=== PATIENT | female | born 1985 | race Caucasian/White ===

== ENCOUNTER 2018-10-16 12:31 | Emergency (ER) | payer OTHER ==
[2018-10-16] MEDS ORDERED: SUBLIMAZE IV ONE (12:47)
[2018-10-16] MEDS ORDERED: ZOFRAN IV ONE (12:47)
[2018-10-16] MEDS ORDERED: KETALAR IV ONE (12:47)
[2018-10-16] MEDS ORDERED: DIPRIVAN 10 MG/ML IV ONE (12:47)
--- NOTE | 2018-10-16 12:49 | Emergency Department Report ---
ED General Adult HPI - General Chief complaint: Shoulder Injury Stated complaint: right shoulder dislocated Time Seen by Provider: 10/16/18 12:40 Source: family, site interpreter, RN notes reviewed Mode of arrival: Ambulatory Limitations: Language Barrier, Physical Limitation - History of Present Illness Initial comments: This is a 33-year-old female. The patient is not known to this provider previously. The patient is right-hand dominant. Patient is [place]-speaking only. Patient reports having lived in [facility] for 3 years. transit manager: Tammy Thomas The patient reportedly has a history of seizure disorder, and reportedly takes a antiseizure medication purchased in [place], fenidantoin, 200 mg twice daily. The patient endorses compliance with her medications. She had a seizure yesterday. She apparently hit her right shoulder and dislocated it. Prior to the seizure, the patient indicates no complaints. After the seizure, the patient complains of sharp right-sided shoulder pain. The pain does not radiate anywhere. It increases with palpation. It decreases with rest. There is currently no headache, neck pain, chest pain, abdominal pain, shortness of breath or urinary symptoms. Her last seizure was 2 years ago. -: Sudden Location: right, upper extremity Radiation: non-radiation Consistency: constant Improves with: rest Worsens with: movement - Related Data Previous Rx's Medication Instructions Recorded Last Taken Type Acetaminophen [Non-Aspirin Extra 500 mg PO Q6HR PRN #30 tablet 10/16/18 Unknown Rx Strength] Ibuprofen [Motrin] 600 mg PO Q8H PRN #30 tablet 10/16/18 Unknown Rx levETIRAcetam [Keppra TAB] 500 mg PO BID #60 tablet 10/16/18 Unknown Rx Allergies Allergy/AdvReac Type Severity Reaction Status Date / Time No Known Allergies Allergy Unverified 10/16/18 12:36 ED Review of Systems ROS: Stated complaint: LEFT SHOULDER DISLOCATED Other details as noted in HPI Constitutional: denies: fever Eyes: denies: eye discharge ENT: denies: epistaxis Respiratory: denies: cough Cardiovascular: denies: chest pain Genitourinary: denies: dysuria Musculoskeletal: arthralgia, myalgia Skin: denies: lesions Neurological: denies: headache Psychiatric: anxiety ED Past Medical Hx - Past Medical History Previous Medical History?: No - Surgical History Past Surgical History?: No - Medications Home Medications: Home Medications Medication Instructions Recorded Confirmed Last Taken Type Acetaminophen [Non-Aspirin Extra 500 mg PO Q6HR PRN #30 tablet 10/16/18 Unknown Rx Strength] Ibuprofen [Motrin] 600 mg PO Q8H PRN #30 tablet 10/16/18 Unknown Rx levETIRAcetam [Keppra TAB] 500 mg PO BID #60 tablet 10/16/18 Unknown Rx ED Physical Exam - General Limitations: Language Barrier, Physical Limitation General appearance: alert, anxious - Head Head exam: Present: atraumatic, normocephalic - Eye Eye exam: Present: normal appearance, PERRL, EOMI. Absent: nystagmus - ENT ENT exam: Present: normal exam, normal orophraynx, mucous membranes moist, normal external ear exam - Neck Neck exam: Present: normal inspection, full ROM. Absent: tenderness, meningismu s - Respiratory Respiratory exam: Present: normal lung sounds bilaterally. Absent: respiratory distress - Cardiovascular Cardiovascular Exam: Present: regular rate, normal rhythm, normal heart sounds. Absent: bradycardia, tachycardia, irregular rhythm, systolic murmur, diastolic murmur, rubs, gallop - GI/Abdominal GI/Abdominal exam: Present: soft. Absent: distended, tenderness, guarding, rebound, rigid, pulsatile mass - Extremities Exam Extremities exam: Present: full ROM (full range of motion noted in the right hand and wrist. Finger intrinsic muscles appear to be intact.), tenderness, other (2+ pulses noted in the bilateral upper extremities. Full range of motion bilateral lower extremities. Full range of motion in the left upper extremity. Sensation is intact to the bilateral deltoid, median, radial, ulnar distribution on the upper extremities.). Absent: normal inspection (there is a palpable shoulder deformity on the right shoulder.), calf tenderness - Back Exam Back exam: Present: normal inspection, full ROM. Absent: tenderness, CVA tenderness (R), CVA tenderness (L), paraspinal tenderness, vertebral tenderness - Neurological Exam Neurological exam: Present: alert, normal gait, other (Extraocular movements intact. Tongue midline. No facial droop. Facial sensation intact to light touch in the V1, V2, V3 distribution bilaterally. 5 and 5 strength in 4 extremities.. Sensation is intact to light touch in 4 extremities.) - Psychiatric Psychiatric exam: Present: anxious - Skin Skin exam: Present: warm, dry, intact, normal color. Absent: rash ED Course Vital Signs 10/16/18 10/16/18 10/16/18 13:01 13:30 13:38 Temperature Temperature [ 99.0 F Pre-Procedure] Pulse Rate 70 Pulse Rate [ Intra-Procedure ] Pulse Rate [ Post-Procedure] Pulse Rate [Pre 78 -Procedure] Respiratory 20 Rate Respiratory Rate [Intra- Procedure] Respiratory Rate [Post- Procedure] Respiratory 16 Rate [Pre- Procedure] Blood Pressure 136/82 Blood Pressure [Intra- Procedure] Blood Pressure [Post-Procedure ] Blood Pressure 132/65 [Pre-Procedure] O2 Sat by Pulse 97 99 Oximetry O2 Sat by Pulse Oximetry [ Intra-Procedure ] O2 Sat by Pulse Oximetry [Post -Procedure] O2 Sat by Pulse 100 Oximetry [Pre- Procedure] 10/16/18 10/16/18 10/16/18 13:41 13:54 14:00 Temperature 99 F Temperature [ Pre-Procedure] Pulse Rate 74 70 Pulse Rate [ 68 Intra-Procedure ] Pulse Rate [ 62 Post-Procedure] Pulse Rate [Pre -Procedure] Respiratory 18 19 Rate Respiratory 16 Rate [Intra- Procedure] Respiratory 14 Rate [Post- Procedure] Respiratory Rate [Pre- Procedure] Blood Pressure 128/82 136/80 Blood Pressure 144/81 [Intra- Procedure] Blood Pressure 139/80 [Post-Procedure ] Blood Pressure [Pre-Procedure] O2 Sat by Pulse 98 97 Oximetry O2 Sat by Pulse 100 Oximetry [ Intra-Procedure ] O2 Sat by Pulse 100 Oximetry [Post -Procedure] O2 Sat by Pulse Oximetry [Pre- Procedure] 10/16/18 10/16/18 10/16/18 14:04 14:15 14:30 Temperature Temperature [ Pre-Procedure] Pulse Rate 70 62 Pulse Rate [ Intra-Procedure ] Pulse Rate [ 66 59 L Post-Procedure] Pulse Rate [Pre -Procedure] Respiratory 18 14 Rate Respiratory Rate [Intra- Procedure] Respiratory 16 16 Rate [Post- Procedure] Respiratory Rate [Pre- Procedure] Blood Pressure 127/75 Blood Pressure [Intra- Procedure] Blood Pressure 127/75 128/76 [Post-Procedure ] Blood Pressure [Pre-Procedure] O2 Sat by Pulse 100 Oximetry O2 Sat by Pulse Oximetry [ Intra-Procedure ] O2 Sat by Pulse 100 100 Oximetry [Post -Procedure] O2 Sat by Pulse Oximetry [Pre- Procedure] 10/16/18 10/16/18 10/16/18 14:45 15:00 15:30 Temperature Temperature [ Pre-Procedure] Pulse Rate 64 62 Pulse Rate [ Intra-Procedure ] Pulse Rate [ 85 Post-Procedure] Pulse Rate [Pre -Procedure] Respiratory 18 15 Rate Respiratory Rate [Intra- Procedure] Respiratory 16 Rate [Post- Procedure] Respiratory Rate [Pre- Procedure] Blood Pressure 133/81 130/75 Blood Pressure [Intra- Procedure] Blood Pressure 138/77 [Post-Procedure ] Blood Pressure [Pre-Procedure] O2 Sat by Pulse 100 97 Oximetry O2 Sat by Pulse Oximetry [ Intra-Procedure ] O2 Sat by Pulse 100 Oximetry [Post -Procedure] O2 Sat by Pulse Oximetry [Pre- Procedure] - Reevaluation(s) Reevaluation #1: 10/16/18 13:38 Differential diagnosis, including not limited to: Breakthrough seizure, electrolyte derangement, intracranial injury, urinary tract infection, ineffective seizure medication, right upper extremity dislocation Assessment and plan: 33-year-old female sent to the emergency room for out patient confirmed right upper extremity shoulder dislocation. The patient walks with a steady gait and appears to be neurovascularly intact. She is protecting her airway at this time. Her reported last time of oral intake is at 10:00 in the morning. Using the aforementioned fluent transit manager, we recommended moderate sedation with closed reduction of the right upper extremity dislocation. Risks and benefits were discussed with the patient. She verbalizes understanding. The patient requests that her signed informed consents for her, as she cannot write with her right upper extremity. We will treat her pain. She will be loaded with Keppra. We will discontinue her medication as it does not appear to be FDA regulated, and we will recommend initiation of Keppra, follow up with outpatient neurology or primary care, and avoidance of operating motor vehicles until cleared to drive. Reevaluation #2: 10/16/18 15:25 Shoulder is successfully reduced. Patient resting comfortably in stretcher. She is loaded with Keppra. CT scan of the brain and urinalysis are pending. Please note that during moderate sedation procedure, we were accompanied by nurse Kendy Sidhu and RT Kaitlyn Posada Reevaluation #3: 10/16/18 16:22 Walking with a steady gait. Patient in no distress. Initial urine sample contaminated and not interpretable. Went back and explained to the patient importance of obtaining clean catch urine sample, and described her to perform a clean catch after appropriate cleaning. Please note that the patient is having a delay in her disposition, and prolonged stay in the emergency room secondary to the time it took to acquire a urine sample, and time required to procure an additional urine sample. Reevaluation #4: 10/16/18 17:54 Repeat urinalysis reviewed and appreciated. Patient has endorsed no urinary symptoms. Patient resting comfortable, and in no acute distress. Patient will be discharged. - Moderate Sedation Indications: fracture/dislocation redu ASA Class: II Mallampati Airway Score: 1 Preparation: park police applied, pulse oximeter, capnometry used, supplemental O2 applied, suction/airway equipment at bedside Ketamine: IV Ketamine Dose: 50 (pushed by myself personally) IV Propofol Dose (mgs): 50 (administered by myself personally) Complications: none Patient Tolerated Procedure: well - Orthopedic Joint Reduction Joint #1 Consent Obtained: verbal consent, written consent, emergent situation Time Out Performed: Yes Side: right Joint Reduction Location: shoulder Analgesia: moderate sedation Technique Used: direct manipulation Post-Reduction Neuro Exam: intact Post-Reduction Vascular Exam: intact Post Reduction X-Ray Obtained: Yes Post Reduction X-Ray Results: reduced Splint Applied: Yes Patient Tolerated Procedure: well - Orthopedic Splinting/Casting Injury #1 Side: right Upper Extremity Injury Location: shoulder Upper Extremity Immobilizer: sling/shoulder immobilize ED Medical Decision Making - Lab Data Result diagrams: 10/16/18 12:57 10/16/18 12:57 Lab Results 10/16/18 10/16/18 10/16/18 Range/Units 12:57 12:57 12:57 WBC 11.1 H (4.5-11.0) K/mm3 RBC 4.30 (3.65-5.03) M/mm3 Hgb 13.1 (10.1-14.3) gm/dl Hct 38.0 (30.3-42.9) % MCV 88 (79-97) fl MCH 30 (28-32) pg MCHC 34 (30-34) % RDW 13.4 (13.2-15.2) % Plt Count 288 (140-440) K/mm3 Sodium 140 (137-145) mmol/L Potassium 3.7 (3.6-5.0) mmol/L Chloride 101.6 (98-107) mmol/L Carbon Dioxide 25 (22-30) mmol/L Anion Gap 17 mmol/L BUN 12 (7-17) mg/dL Creatinine 0.5 L (0.7-1.2) mg/dL Estimated GFR > 60 ml/min BUN/Creatinine Ratio 24 % Glucose 110 H (65-100) mg/dL Calcium 8.8 (8.4-10.2) mg/dL Magnesium 2.20 (1.7-2.3) mg/dL Total Creatine Kinase 175 H (30-135) units/L HCG, Quant < 2 (0-4) mIU/mL Vital Signs 10/16/18 10/16/18 10/16/18 13:01 13:30 13:38 Temperature Temperature [ 99.0 F Pre-Procedure] Pulse Rate 70 Pulse Rate [ Intra-Procedure ] Pulse Rate [ Post-Procedure] Pulse Rate [Pre 78 -Procedure] Respiratory 20 Rate Respiratory Rate [Intra- Procedure] Respiratory Rate [Post- Procedure] Respiratory 16 Rate [Pre- Procedure] Blood Pressure 136/82 Blood Pressure [Intra- Procedure] Blood Pressure [Post-Procedure ] Blood Pressure 132/65 [Pre-Procedure] O2 Sat by Pulse 97 99 Oximetry O2 Sat by Pulse Oximetry [ Intra-Procedure ] O2 Sat by Pulse Oximetry [Post -Procedure] O2 Sat by Pulse 100 Oximetry [Pre- Procedure] 10/16/18 10/16/18 10/16/18 13:41 13:54 14:00 Temperature 99 F Temperature [ Pre-Procedure] Pulse Rate 74 70 Pulse Rate [ 68 Intra-Procedure ] Pulse Rate [ 62 Post-Procedure] Pulse Rate [Pre -Procedure] Respiratory 18 19 Rate Respiratory 16 Rate [Intra- Procedure] Respiratory 14 Rate [Post- Procedure] Respiratory Rate [Pre- Procedure] Blood Pressure 128/82 136/80 Blood Pressure 144/81 [Intra- Procedure] Blood Pressure 139/80 [Post-Procedure ] Blood Pressure [Pre-Procedure] O2 Sat by Pulse 98 97 Oximetry O2 Sat by Pulse 100 Oximetry [ Intra-Procedure ] O2 Sat by Pulse 100 Oximetry [Post -Procedure] O2 Sat by Pulse Oximetry [Pre- Procedure] 10/16/18 10/16/18 10/16/18 14:04 14:15 14:30 Temperature Temperature [ Pre-Procedure] Pulse Rate 70 62 Pulse Rate [ Intra-Procedure ] Pulse Rate [ 66 59 L Post-Procedure] Pulse Rate [Pre -Procedure] Respiratory 18 14 Rate Respiratory Rate [Intra- Procedure] Respiratory 16 16 Rate [Post- Procedure] Respiratory Rate [Pre- Procedure] Blood Pressure 127/75 Blood Pressure [Intra- Procedure] Blood Pressure 127/75 128/76 [Post-Procedure ] Blood Pressure [Pre-Procedure] O2 Sat by Pulse 100 Oximetry O2 Sat by Pulse Oximetry [ Intra-Procedure ] O2 Sat by Pulse 100 100 Oximetry [Post -Procedure] O2 Sat by Pulse Oximetry [Pre- Procedure] 10/16/18 10/16/18 10/16/18 14:45 15:00 15:30 Temperature Temperature [ Pre-Procedure] Pulse Rate 64 62 Pulse Rate [ Intra-Procedure ] Pulse Rate [ 85 Post-Procedure] Pulse Rate [Pre -Procedure] Respiratory 18 15 Rate Respiratory Rate [Intra- Procedure] Respiratory 16 Rate [Post- Procedure] Respiratory Rate [Pre- Procedure] Blood Pressure 133/81 130/75 Blood Pressure [Intra- Procedure] Blood Pressure 138/77 [Post-Procedure ] Blood Pressure [Pre-Procedure] O2 Sat by Pulse 100 97 Oximetry O2 Sat by Pulse Oximetry [ Intra-Procedure ] O2 Sat by Pulse 100 Oximetry [Post -Procedure] O2 Sat by Pulse Oximetry [Pre- Procedure] - EKG Data -: EKG Interpreted by Al EKG shows normal: sinus rhythm Rate: normal - EKG Data When compared to previous EKG there are: previous EKG unavailable 10/16/18 13:41 EKG today shows a sinus rhythm, 81 bpm, normal axis, QTC prolonged, borderline high with ventricular voltage, abnormal EKG, not consistent with STEMI, there is no prior EKG available for comparison. - Radiology Data Radiology results: pending, report reviewed, image reviewed ct brain negative nt Report Referring Physician: ERIKA PINO Patient Name: ELIZABETH TYSON Date of : 1985 Sex: Female Report Date: 2018-10-16 Report Status: Finalized Findings [facility] [address] [place] [address] XRay Report Signed Patient: ELIZABETH TYSON MR#: [id number] : 1985 Acct:[id number] Age/Sex: 33 / F ADM Date: 10/16/18 Loc: ED Attending Dr: Ordering Physician: ERIKA PINO MD Date of Service: 10/16/18 Procedure(s): XR shoulder 1V RT Accession Number(s): [id number] cc: ERIKA PINO MD Fluoro Time In Minutes: PROCEDURE: XR SHOULDER 1V RT TECHNIQUE: Right shoulder, one view HISTORY: right shoulder dislocation COMPARISONS: None FINDINGS: There is anterior dislocation of the right humeral head. No obvious fracture is identified. Acromioclavicular joint appears intact. IMPRESSION: Anterior dislocation of the right humeral head. This document is electronically signed by Kevin Yeung MD., October 16 2018 03:06:52 PM ET Transcribed By: [facility] Dictated By: KEVIN YEUNG M.D. Electronically Authenticated By: KEVIN YEUNG M.D. Signed Date/Time: 10/16/18 1408 Print Report Referring Physician: ERIKA PINO Patient Name: ELIZABETH TYSON Date of : 1985 Sex: Female Report Date: 2018-10-16 Report Status: Finalized Findings [facility] [address] [place] [address] XRay Report Signed Patient: ELIZABETH TYSON MR#: [id number] : 1985 Acct:[id number] Age/Sex: 33 / F ADM Date: 10/16/18 Loc: ED Attending Dr: Ordering Physician: ERIKA PINO MD Date of Service: 10/16/18 Procedure(s): XR shoulder 1V RT Accession Number(s): [id number] cc: ERIKA PINO MD Fluoro Time In Minutes: PROCEDURE: XR SHOULDER 1V RT TECHNIQUE: Right shoulder 1 view HISTORY: s/p reduction COMPARISON: Earlier image from 10/16/2018 FINDINGS: Previously seen dislocation has been reduced. There is no acute fracture seen. IMPRESSION: Interval reduction of dislocation. This document is electronically signed by Lena Arreola MD., October 16 2018 03:30:40 PM ET Transcribed By: [facility] Dictated By: LENA ARREOLA MD Electronically Authenticated By: LENA ARREOLA MD Signed Date/Time: 10/16/18 9332 Critical care attestation.: If time is entered above; I have spent that time in minutes in the direct care of this critically ill patient, excluding procedure time. ED Disposition Clinical Impression: History of seizure Shoulder dislocation Qualifiers: Encounter type: initial encounter Laterality: right Qualified Code(s): S43.004A - Unspecified dislocation of right shoulder joint, initial encounter Disposition: TO HOME OR SELFCARE Is pt being admited?: No Does the pt Need Aspirin: No Condition: Stable Instructions: Shoulder Dislocation (ED), Moderate Sedation (ED), Recurrent Seizures Adult (ED) Additional Instructions: Do not drive or operate motor vehicles for the next 6 months, or unless cleared by her primary care doctor or neurology doctor to operate motor vehicles. keep The shoulder sling in place, take the pain medication as directed, and follow-up with an orthopedic surgeon or primary care doctor for right upper extremity dislocation and reduction within the next 7-10 days. Discontinue the seizure medication from [place], and start taking the seizure medication that was prescribed, keppra, 500 mg orally twice day Follow up with a primary care doctor or neurology specialist for seizures within the next 7-10 days. Follow-up with an orthopedic doctor or primary care doctor for right upper extremity dislocation within the next 7-10 days. Return to the emergency room right away with new pain, worsened pain, migration of pain, projectile vomiting, change in mental status, confusion, inability to tolerate liquid feeds, new, worsening or different symptoms not present on the initial ER evaluation. No conduzca ni maneje vehculos motorizados ericka los prximos 6 meses, o a menos que casas mdico de atencin primaria o casas mdico especialista en neurologa lo autorice a operar vehculos motorizados. mantenga el cabestrillo para el hombro en casas lugar, tome la medicacin para el dolor segn las indicaciones y he un seguimiento con un cirujano ortopdico o un mdico de atencin primaria para la dislocacin y reduccin de la extremidad superior derecha en los prximos 7 a 10 henry. Descontine la medicacin para las convulsiones de [place] y comience a nusrat la medicacin para las convulsiones que le recetaron, Keppra, 500 mg por va oral dos veces al da. He un seguimiento con un mdico de atencin primaria o un especialista en neurologa para las convulsiones en los prximos 7 a 10 henry. He un seguimiento con un mdico ortopdico o un mdico de atencin primaria para la dislocacin de la extremidad superior derecha en los prximos 7 a 10 henry. Regrese a la jasiel de emergencias de inmediato con dolor nuevo, dolor empeorado, migracin del vmito, vmito con proyectil, cambio en el estado mental, confusin, incapacidad para tolerar alimentos lquidos, sntomas nuevos, que empeoran o diferentes que no se presentan en la evaluacin inicial de la ER. Prescriptions: levETIRAcetam [Keppra TAB] 500 mg PO BID #60 tablet Ibuprofen [Motrin] 600 mg PO Q8H PRN #30 tablet PRN Reason: Pain Acetaminophen [Non-Aspirin Extra Strength] 500 mg PO Q6HR PRN #30 tablet PRN Reason: Pain , Severe (7-10) Referrals: [facility] MD CANDIDO [Primary Care Provider] - 3-5 Days SALOMÓN LUNSFORD MD [Staff Physician] - 3-5 Days CHEN BENITEZ MD [Referring] - 3-5 Days ZAINAB KRUEGER MD [Staff Physician] - 3-5 Days SILVINA KIRAN MD [Staff Physician] - 3-5 Days Print Language: HEBREW
[2018-10-16 13:22] LABS: Hemoglobin 13.1 gm/dl (10.1-14.3); Mean Corpuscular HGB Conc 34 % (30-34); Mean Corpuscular Volume 88 fl (79-97); Platelet Count 288 K/mm3 (140-440); Red Cell Distribution Width 13.4 % (13.2-15.2)
[2018-10-16 13:31] LABS: BUN/Creatinine Ratio 24; Blood Urea Nitrogen 12 mg/dL (7-17); Calcium 8.8 mg/dL (8.4-10.2); Hemolysis Index 2
[2018-10-16] MEDS ORDERED: KEPPRA 500 MG in D5W 100 ML IV ONE (13:41)
--- NOTE | 2018-10-16 14:08 | XRay Report ---
PROCEDURE: XR SHOULDER 1V RT TECHNIQUE: Right shoulder, one view HISTORY: right shoulder dislocation COMPARISONS: None FINDINGS: There is anterior dislocation of the right humeral head. No obvious fracture is identified. Acromiocl avicular joint appears intact. IMPRESSION: Anterior dislocation of the right humeral head. This document is electronically signed by Tiffanie Yeung MD., October 16 2018 03:06:52 PM ET
--- NOTE | 2018-10-16 14:32 | XRay Report ---
PROCEDURE: XR SHOULDER 1V RT TECHNIQUE: Right shoulder 1 view HISTORY: s/p reduction COMPARISON: Earlier image from 10/16/2018 FINDINGS: Previously seen dislocation has been reduced. There is no acute fracture seen. IMPRESSION: Interval reduction of dislocation. This document is electronically signed by Lena Arreola MD., October 16 2018 03:30:40 PM ET
--- NOTE | 2018-10-16 15:58 | Cat Scan Report ---
PROCEDURE: CT HEAD/BRAIN WO CON TECHNIQUE: Computerized tomography of the head was performed without contrast material. CT DOSE LENGTH PRODUCT: 920.5 mGycm HISTORY: Seizure COMPARISONS: None . FINDINGS: Brain: Brain density appears normal. No evidence of intracranial hemorrhage. No parenchymal hemorr alexandrea, mass lesions or mass effect are seen. No abnormal extra-axial fluid collects or masses are see n. Ventricles: Ventricles are normal size and are midline. Bone Windows: No evidence of skull fracture. Paranasal sinuses: Visualized portions are clear. Mastoid air cells: Clear. IMPRESSION: Negative unenhanced CT scan of the brain. If clinically indicated MRI of the brain could be obtained to evaluate for possible seizure focus. This document is electronically signed by Harlan Saha MD., October 16 2018 04:56:42 PM ET
[2018-10-16 16:08] LABS: Bacteria,Urine 2+ /HPF (Negative); Bilirubin,Urine NEG (Negative); Blood,Urine SM (Negative); Color,Urine Yellow (Yellow); Mucus,Urine 3+ /HPF; Urobilinogen,Urine < 2.0 mg/dL (<2.0)
[2018-10-16 17:43] LABS: Bacteria,Urine 1+ /HPF (Negative); Bilirubin,Urine NEG (Negative); Blood,Urine SM (Negative); Color,Urine Yellow (Yellow); Mucus,Urine FEW /HPF; Protein,Urine <15 mg/dL mg/dL (Negative); Urobilinogen,Urine < 2.0 mg/dL (<2.0)
[2018-10-16 18:01] VITALS: BP 122/71
== END 2018-10-16 18:01 | disposition home or self-care (01) ==
LOC: EDBD 12:31 → ED 12:31
DX: S43.004A Unspecified dislocation of right shoulder joint, initial encounter (principal); G40.909 Epilepsy, unspecified, not intractable, without status epilepticus; W22.8XXA Striking against or struck by other objects, initial encounter; Y93.89 Activity, other specified; Y92.89 Other specified places as the place of occurrence of the external cause; Y99.8 Other external cause status
CPT/HCPCS: 23650; 36415; 70450; 73020; 80048; 80186; 81001; 82550; 83735; 84702; 85027; 93005; 93010; 96374; 96375; 99285; J1953; J2405; J2704; J3010

== ENCOUNTER 2018-11-09 20:25 | Emergency (ER) | payer OTHER ==
[2018-11-09] MEDS ORDERED: NACL 0.9% 1000 ML 1,000 ML IV ONE (20:49)
--- NOTE | 2018-11-09 20:49 | Event Note ---
ED Screening Note ED Screening Note: HAD SZ FELL ARM DEFORMED TO MAIN This initial assessment/diagnostic orders/clinical plan/treatment(s) is/are subject to change based on patients health status, clinical progression and re- assessment by fellow clinical providers in the ED. Further treatment and workup at subsequent clinical providers discretion. Patient/guardian urged not to elope from the ED as their condition may be serious if not clinically assessed and managed. Initial orders include:
[2018-11-09 21:05] LABS: Basophils % (Auto) 0.4 % (0.0-1.8); Eosinophils # (Auto) 0.1 K/mm3 (0.0-0.4); Eosinophils % (Auto) 0.8 % (0.0-4.3); Hematocrit 35.8 % (30.3-42.9); Hemoglobin 12.5 gm/dl (10.1-14.3); Lymphocytes # (Auto) 1.5 K/mm3 (1.2-5.4); Lymphocytes % (Auto) 22.1 % (13.4-35.0); Mean Corpuscular HGB Conc 35 % (30-34); Mean Corpuscular Volume 90 fl (79-97); Monocytes # (Auto) 0.5 K/mm3 (0.0-0.8); Monocytes % (Auto) 7.8 % (0.0-7.3); Platelet Count 265 K/mm3 (140-440); Red Cell Distribution Width 14.2 % (13.2-15.2)
--- NOTE | 2018-11-09 21:27 | XRay Report ---
PROCEDURE: XR SHOULDER 2+V RT TECHNIQUE: Right shoulder, 2 views HISTORY: ARM DEFORMED COMPARISONS: 10/16/2018 FINDINGS: There is anterior dislocation of the humeral head. No fracture is visible. Acromioclavicular joint ap pears intact IMPRESSION: Anterior dislocation of the right humeral head. This document is electronically signed by Tiffanie Yeung MD., November 09 2018 09:25:37 PM ET
[2018-11-09 21:31] LABS: Alanine Aminotransferase 68 units/L (7-56); Albumin 4.6 g/dL (3.9-5); BUN/Creatinine Ratio 23; Blood Urea Nitrogen 14 mg/dL (7-17); Hemolysis Index 6
[2018-11-09] MEDS ORDERED: KETALAR IV ONE (21:35)
[2018-11-09] MEDS ORDERED: DIPRIVAN 10 MG/ML IV ONE (21:35)
[2018-11-09] MEDS ORDERED: KEPPRA 1,000 MG/NS 0.75% 100ML 1,000 MG/100 ML BAG IV ONE (21:40)
--- NOTE | 2018-11-09 22:01 | Emergency Department Report ---
HPI - General Chief Complaint: Seizure Time Seen by Provider: 11/09/18 20:49 - HPI HPI: 33-year-old female presents to the emergency Department with complaints of a witnessed seizure and what appears to be a right shoulder dislocation. The patient is right-hand dominant. She apparently had a seizure about 20 minutes prior to arrival and fell onto the floor. The patient does not speak much Japanese but her brother and [id number] at bedside during translation. The patient last had a seizure about one month ago. She has also had 1 previous episode of shoulder dislocation in this right shoulder. The patient is compliant with her medications and it appears that she takes a [place] medication for seizures that appears consistent with phenytoin. ED Past Medical Hx - Past Medical History Previous Medical History?: Yes Hx Seizures: Yes (unk medication) - Surgical History Past Surgical History?: No - Social History Smoking Status: Never Smoker - Medications Home Medications: Home Medications Medication Instructions Recorded Confirmed Last Taken Type Acetaminophen [Non-Aspirin Extra 500 mg PO Q6HR PRN #30 tablet 10/16/18 Unknown Rx Strength] Ibuprofen [Motrin] 600 mg PO Q8H PRN #30 tablet 10/16/18 Unknown Rx levETIRAcetam [Keppra TAB] 500 mg PO BID #60 tablet 10/16/18 Unknown Rx ED Review of Systems ROS: Stated complaint: RIGHT SHOULDER PAIN Other details as noted in HPI Comment: All other systems reviewed and negative Constitutional: denies: chills, fever Eyes: denies: eye pain, vision change ENT: denies: ear pain, throat pain Respiratory: denies: cough, shortness of breath Cardiovascular: denies: chest pain, palpitations Gastrointestinal: denies: abdominal pain, vomiting Genitourinary: denies: dysuria, discharge Musculoskeletal: arthralgia. denies: back pain Skin: denies: rash, lesions Neurological: other (seizure). denies: weakness Physical Exam - Physical Exam Vital Signs: Vital Signs 11/09/18 11/09/18 11/09/18 21:18 21:20 21:26 Pulse Rate 80 80 86 Pulse Rate [Pre -Procedure] Respiratory 13 21 30 H Rate Respiratory Rate [Pre- Procedure] Blood Pressure 131/87 131/87 131/87 Blood Pressure [Left] Blood Pressure [Pre-Procedure] O2 Sat by Pulse 99 99 Oximetry O2 Sat by Pulse Oximetry [Pre- Procedure] 06/25/19 06/25/19 06/25/19 21:30 21:36 21:37 Pulse Rate 81 86 81 Pulse Rate [Pre -Procedure] Respiratory 44 H 49 H 16 Rate Respiratory Rate [Pre- Procedure] Blood Pressure 131/87 132/85 Blood Pressure 132/85 [Left] Blood Pressure [Pre-Procedure] O2 Sat by Pulse 100 98 Oximetry O2 Sat by Pulse Oximetry [Pre- Procedure] 11/09/18 11/09/18 11/09/18 21:41 21:45 21:50 Pulse Rate 84 77 77 Pulse Rate [Pre -Procedure] Respiratory 15 17 25 H Rate Respiratory Rate [Pre- Procedure] Blood Pressure 141/94 138/88 Blood Pressure [Left] Blood Pressure [Pre-Procedure] O2 Sat by Pulse 99 100 100 Oximetry O2 Sat by Pulse Oximetry [Pre- Procedure] 11/09/18 21:55 Pulse Rate Pulse Rate [Pre 77 -Procedure] Respiratory Rate Respiratory 18 Rate [Pre- Procedure] Blood Pressure Blood Pressure [Left] Blood Pressure 141/94 [Pre-Procedure] O2 Sat by Pulse Oximetry O2 Sat by Pulse 99 Oximetry [Pre- Procedure] Physical Exam: GENERAL: The patient is well-developed well-nourished. HENT: Normocephalic. Atraumatic. Patient has moist mucous membranes. EYES: Extraocular motions are intact. NECK: Supple. Trachea is midline. CHEST/LUNGS: Clear to auscultation. There is no respiratory distress noted. HEART/CARDIOVASCULAR: Regular. There is no tachycardia. There is no murmur. ABDOMEN: Abdomen is soft, nontender. Patient has normal bowel sounds. There is no abdominal distention. SKIN: Skin is warm and dry. NEURO: The patient is awake, alert, and oriented. The patient is cooperative. The patient has no focal neurologic deficits. The patient has normal speech. MUSCULOSKELETAL: There is tenderness to palpation of the right shoulder. The patient is holding the right arm in internal rotation against her body. Decreased range of motion of the right upper extremity at the shoulder. Radial pulse +2 over 4 and capillary refill less than 2 seconds to the affected right upper extremity. ED Course Vital Signs 11/09/18 11/09/18 11/09/18 21:18 21:20 21:26 Pulse Rate 80 80 86 Pulse Rate [Pre -Procedure] Respiratory 13 21 30 H Rate Respiratory Rate [Pre- Procedure] Blood Pressure 131/87 131/87 131/87 Blood Pressure [Left] Blood Pressure [Pre-Procedure] O2 Sat by Pulse 99 99 Oximetry O2 Sat by Pulse Oximetry [Pre- Procedure] 11/09/18 11/09/18 11/09/18 21:30 21:36 21:37 Pulse Rate 81 86 81 Pulse Rate [Pre -Procedure] Respiratory 44 H 49 H 16 Rate Respiratory Rate [Pre- Procedure] Blood Pressure 131/87 132/85 Blood Pressure 132/85 [Left] Blood Pressure [Pre-Procedure] O2 Sat by Pulse 100 98 Oximetry O2 Sat by Pulse Oximetry [Pre- Procedure] 11/09/18 11/09/18 11/09/18 21:41 21:45 21:50 Pulse Rate 84 77 77 Pulse Rate [Pre -Procedure] Respiratory 15 17 25 H Rate Respiratory Rate [Pre- Procedure] Blood Pressure 141/94 138/88 Blood Pressure [Left] Blood Pressure [Pre-Procedure] O2 Sat by Pulse 99 100 100 Oximetry O2 Sat by Pulse Oximetry [Pre- Procedure] 11/09/18 21:55 Pulse Rate Pulse Rate [Pre 77 -Procedure] Respiratory Rate Respiratory 18 Rate [Pre- Procedure] Blood Pressure Blood Pressure [Left] Blood Pressure 141/94 [Pre-Procedure] O2 Sat by Pulse Oximetry O2 Sat by Pulse 99 Oximetry [Pre- Procedure] - Moderate Sedation Indications: fracture/dislocation redu ASA Class: I Mallampati Airway Score: 1 Time of Last PO Intake: 17:00 Preparation: school bus monitor applied, pulse oximeter, capnometry used, supplemental O2 applied, suction/airway equipment at bedside, IV secured Ketamine: IV Ketamine Dose: 30 IV Propofol Dose (mgs): 40 Complications: none Patient Tolerated Procedure: well - Orthopedic Joint Reduction Joint #1 Consent Obtained: written consent Time Out Performed: Yes Side: right Joint Reduction Location: shoulder Analgesia: moderate sedation Shoulder Technique Used (if applicable): traction/counter-traction, external rotation Post-Reduction Neuro Exam: intact Post-Reduction Vascular Exam: intact Post Reduction X-Ray Obtained: Yes Post Reduction X-Ray Results: reduced Splint Applied: Yes Patient Tolerated Procedure: well ED Medical Decision Making - Lab Data Result diagrams: 11/09/18 20:54 11/09/18 20:54 - Radiology Data Radiology results: image reviewed interpreted by me: The first shoulder x-ray shows an anterior dislocation but no obvious fracture. Post reduction shoulder x-ray shows appropriate reduction of the humeral head into the glenohumeral joint. - Medical Decision Making This patient presents to the emergency department with a right shoulder dislocation after having a seizure witnessed by family. She does have a seizure history. She appears to be on some type of medication from [place] that appears consistent with phenytoin. I went ahead and also cover the patient with a gram of Keppra. The patient was awake and alert since arrival to the emergency department. We did a moderate sedation with successful reduction of the right shoulder dislocation. She was neurovascularly intact before and after the procedure. Patient was monitored until she was back at a baseline mental status after the sedation. Overall, she was reevaluated multiple times over about 3 hours and there was no further seizure-like activity. The rest of her labs were unremarkable. She has been given a referral for primary care, orthopedist and neurology. She will return to the ER with any worsening of her symptoms in any acute distress. - Differential Diagnosis epilepsy, shoulder dislocation, fracture Critical Care Time: No Critical care attestation.: If time is entered above; I have spent that time in minutes in the direct care o f this critically ill patient, excluding procedure time. ED Disposition Clinical Impression: Seizure Dislocation of right shoulder joint Qualifiers: Encounter type: initial encounter Qualified Code(s): S43.004A - Unspecified dislocation of right shoulder joint, initial encounter Disposition: - TO HOME OR SELFCARE Is pt being admited?: No Condition: Stable Instructions: Shoulder Dislocation (ED), Epilepsy (ED), Moderate Sedation (ED) Additional Instructions: Please follow up with a primary care physician. I am giving you a referral for a local orthopedist, Dr. Tucker, to follow up regarding your shoulder dislocation. I am giving you a referral for a local neurologist/pain doctor to follow-up regarding your seizures. Continue taking the seizure medications. Return to the emergency Department with any worsening of your symptoms or any acute distress. Referrals: SILVINA KIRAN MD [Staff Physician] - 3-5 Days SALOMÓN TUCKER MD [Staff Physician] - 3-5 Days [facility] [Outside] - 3-5 Days Time of Disposition: 23:15 Print Language: VIETNAMESE
--- NOTE | 2018-11-09 22:28 | XRay Report ---
PROCEDURE: XR SHOULDER 1V RT TECHNIQUE: Right shoulder, one view HISTORY: post reduction COMPARISONS: 11/09/2018 FINDINGS: There has been reduction of the right glenohumeral joint. No fracture is visible. IMPRESSION: Reduction of the right glenohumeral joint. This document is electronically signed by Tiffanie Yeung MD., November 09 2018 10:26:38 PM ET
[2018-11-09 23:46] VITALS: BP 121/70
== END 2018-11-09 23:53 | disposition home or self-care (01) ==
LOC: ED 20:25
DX: S43.004A Unspecified dislocation of right shoulder joint, initial encounter (principal); R56.9 Unspecified convulsions; X58.XXXA Exposure to other specified factors, initial encounter; Y93.89 Activity, other specified; Y92.89 Other specified places as the place of occurrence of the external cause; Y99.8 Other external cause status
CPT/HCPCS: 23650; 36415; 73020; 73030; 80053; 80156; 80164; 80185; 82550; 85025; 96374; 96375; 99285; J1953; J2704; J7030

== ENCOUNTER 2019-05-08 11:30 | Emergency (ER) | payer SELFPAY ==
--- NOTE | 2019-05-08 13:03 | XRay Report ---
RIGHT SHOULDER 2 VIEWS INDICATION / CLINICAL INFORMATION: right shoulder pain COMPARISON: None available. FINDINGS: BONES / JOINT(S): Subcoracoid dislocation unchanged. No significant arthritis. SOFT TISSUES: No significant abnormality. ADDITIONAL FINDINGS: None. Signer Name: Steve Baez MD Signed: 05/08/2019 12:59 PM Workstation Name: [id number]
[2019-05-08] MEDS ORDERED: HYDROcodone/ACETAMINOPHEN 10-325MG TAB PO ONE (13:09)
[2019-05-08] MEDS ORDERED: predniSONE 20 MG TAB PO ONE (13:09)
[2019-05-08] MEDS ORDERED: KETOROLAC 60 MG/2 ML INJ IM ONE (13:09)
--- NOTE | 2019-05-08 13:36 | Emergency Department Report ---
Blank Doc - Documentation Documentation: This is a 33-year-old female that presents with right shoulder pain. X-rays has been reviewed and as per radiologist there is a right shoulder dislocation. Patient was given Toradol, [place] and prednisone prior to x-ray results. Patient is sent to the main ED for further evaluation and, treatment and shoulder reduction.
[2019-05-08] MEDS ORDERED: ONDANSETRON 4 MG/2 ML INJ IV ONE (14:28)
[2019-05-08] MEDS ORDERED: SODIUM CHLORIDE 0.9% 1000 ML 1,000 ML IV ONE (14:28)
[2019-05-08] MEDS ORDERED: MIDAZOLAM 5 MG/5 ML INJ MDV IV ONE ×2 (14:28→14:31)
[2019-05-08] MEDS ORDERED: fentaNYL 100 MCG/2 ML INJ IV ONE ×2 (14:28→14:50)
[2019-05-08] MEDS ORDERED: fentaNYL 100 MCG/2 ML INJ ONE (14:31)
--- NOTE | 2019-05-08 14:34 | Emergency Department Report ---
ED Upper Extremity Inj HPI - General Chief Complaint: Shoulder Injury Stated Complaint: SHOULDER PAIN Time Seen by Provider: 05/08/19 11:51 Source: patient, family Mode of arrival: Ambulatory Limitations: No Limitations - History of Present Illness Initial Comments: Patient is a 33 years old female with recurrent history of right shoulder dislocation, usually after seizure. Patient presented to the ER with a right shoulder pain since last night after one episode of seizure. Patient denied any other injuries. Patient was seen here yesterday for the same problem and radiologist read the film as negative for shoulder dislocation. MD Complaint: Injury to:: right, shoulder -: Last night Other Extremity Injury: Shoulder: Right Other Injuries: none Improves With: immobilization Worsens With: movement of extremity Context: other Associated Symptoms: denies other symptoms - Related Data Previous Rx's Medication Instructions Recorded Last Taken Type Acetaminophen [Non-Aspirin Extra 500 mg PO Q6HR PRN #30 tablet 10/16/18 Unknown Rx Strength] Ibuprofen [Motrin] 600 mg PO Q8H PRN #30 tablet 10/16/18 Unknown Rx levETIRAcetam [Keppra TAB] 500 mg PO BID #60 tablet 10/16/18 Unknown Rx HYDROcodone/APAP 5-325 [[place] 1 each PO Q6HR PRN #14 tablet 05/08/19 Unknown Rx 5/325] Ondansetron [Zofran Odt] 4 mg PO Q8HR PRN #14 tab.rapdis 05/08/19 Unknown Rx Allergies Allergy/AdvReac Type Severity Reaction Status Date / Time No Known Allergies Allergy Verified 11/09/18 20:44 ED Review of Systems ROS: Stated complaint: SHOULDER PAIN Other details as noted in HPI Comment: All other systems reviewed and negative Constitutional: denies: chills, fever Respiratory: denies: cough, shortness of breath, SOB with exertion, SOB at rest, wheezing Cardiovascular: denies: chest pain Gastrointestinal: denies: abdominal pain, nausea Musculoskeletal: denies: back pain Neurological: denies: headache, weakness ED Past Medical Hx - Past Medical History Previous Medical History?: Yes Hx Seizures: Yes (unk medication) - Surgical History Past Surgical History?: No - Social History Smoking Status: Never Smoker Substance Use Type: Non Opiate Pain, Prescribed - Medications Home Medications: Home Medications Medication Instructions Recorded Confirmed Last Taken Type Acetaminophen [Non-Aspirin Extra 500 mg PO Q6HR PRN #30 tablet 10/16/18 Unknown Rx Strength] Ibuprofen [Motrin] 600 mg PO Q8H PRN #30 tablet 10/16/18 Unknown Rx levETIRAcetam [Keppra TAB] 500 mg PO BID #60 tablet 10/16/18 Unknown Rx HYDROcodone/APAP 5-325 [[place] 1 each PO Q6HR PRN #14 tablet 05/08/19 Unknown Rx 5/325] Ondansetron [Zofran Odt] 4 mg PO Q8HR PRN #14 tab.rapdis 05/08/19 Unknown Rx ED Physical Exam - General Limitations: No Limitations General appearance: alert, in no apparent distress - Head Head exam: Present: atraumatic, normocephalic, normal inspection - Eye Eye exam: Present: normal appearance - ENT ENT exam: Present: normal exam, normal orophraynx, mucous membranes moist - Neck Neck exam: Present: normal inspection, full ROM. Absent: tenderness, meningismus - Respiratory Respiratory exam: Present: normal lung sounds bilaterally - Cardiovascular Cardiovascular Exam: Present: regular rate, normal rhythm, normal heart sounds - GI/Abdominal GI/Abdominal exam: Present: soft, normal bowel sounds. Absent: distended, tenderness, guarding, rebound, rigid, organomegaly, mass, bruit, pulsatile mass, hernia - Extremities Exam Extremities exam: Present: normal capillary refill. Absent: pedal edema, calf tenderness - Expanded Upper Extremity Exam Right Shoulder Exam: Present: normal inspection, tenderness, dislocation. Absent: full ROM, swelling, abrasion, laceration, ecchymosis, deformity, crepidus Upper Arm exam: Present: normal inspection, full ROM. Absent: tenderness, swelling Elbow exam: Present: normal inspection, full ROM. Absent: tenderness, swelling, abrasion, laceration, ecchymosis Forearm Wrist exam: Present: normal inspection, full ROM. Absent: tenderness Hand Wrist exam: Present: normal inspection, full ROM Neuro motor exam: Present: wrist extension intact, thumb opposition intact, thumb IP flexion intact, thumb adduction intact, fingers 2-5 abduction intact Neurosensory exam: Present: 2-point discrimination, radial nerve intact, ulnar nerve intact, median nerve intact Vascular: Present: normal capillary refill - Back Exam Back exam: Present: normal inspection - Neurological Exam Neurological exam: Present: alert, oriented X3, CN II-XII intact - Psychiatric Psychiatric exam: Present: normal mood - Skin Skin exam: Present: warm, intact, normal color ED Course Vital Signs 05/08/19 05/08/19 05/08/19 11:32 13:55 14:00 Temperature 98 F Pulse Rate 66 65 68 Respiratory 20 26 H 22 Rate Blood Pressure 132/81 129/73 O2 Sat by Pulse 98 98 98 Oximetry 05/08/19 14:40 Temperature Pulse Rate Respiratory Rate Blood Pressure O2 Sat by Pulse 98 Oximetry - Moderate Sedation Indications: fracture/dislocation redu ASA Class: II Mallampati Airway Score: 2 Preparation: front desk monitor applied, pulse oximeter, capnometry used, supplemental O2 applied, reversal agents at bedside, suction/airway equipment at bedside, IV secured Fentanyl: IV Fentanyl Dose: 100 Midazolam: IV Midazolam Dose: 5 Complications: vomiting/aspiration Interventions: oxygen applied, airway repositioned, assist by BVM Patient Tolerated Procedure: well - Orthopedic Joint Reduction Joint #1 Consent Obtained: written consent Time Out Performed: Yes Side: right Joint Reduction Location: shoulder Analgesia: moderate sedation Shoulder Technique Used (if applicable): traction/counter-traction Technique Used: traction/counter-traction Post-Reduction Neuro Exam: intact Post-Reduction Vascular Exam: intact Post Reduction X-Ray Obtained: Yes Post Reduction X-Ray Results: reduced Splint Applied: Yes Patient Tolerated Procedure: well, no complications ED Medical Decision Making - Radiology Data Radiology results: report reviewed - Medical Decision Making Patient is a 33 years old female with recurrent history of right shoulder dislocation, usually after seizure. Patient presented to the ER with a right shoulder pain since last night after one episode of seizure. Patient denied any other injuries. Patient was seen here yesterday for the same problem and radiologist read the film as negative for shoulder dislocation. Patient x-ray showed right shoulder dislocation. Using conscious sedation, patient right shoulder dislocation reduced without complication. Postreduction x-ray showed a successful reduction. Patient observed in the ER after the sedation. Patient now is alert, oriented 3 in no acute distress. Patient stated that she is feeling much better and advised to follow-up with Dr. Tucker, orthopedics for further management. Patient also advised to return to the ER if symptoms are not improved. Critical care attestation.: If time is entered above; I have spent that time in minutes in the direct care of this critically ill patient, excluding procedure time. ED Disposition Clinical Impression: Recurrent dislocation, right shoulder Disposition: DC-01 TO HOME OR SELFCARE Is pt being admited?: No Condition: Stable Instructions: Shoulder Dislocation (ED), Moderate Sedation (ED) Prescriptions: HYDROcodone/APAP 5-325 [[place] 5/325] 1 each PO Q6HR PRN #14 tablet PRN Reason: Pain Ondansetron [Zofran Odt] 4 mg PO Q8HR PRN #14 tab.rapdis PRN Reason: Nausea And Vomiting Referrals: SALOMÓN TUCKER MD [Staff Physician] - 3-5 Days
[2019-05-08] MEDS ORDERED: MIDAZOLAM 5 MG/5 ML INJ MDV IV NR (14:50)
[2019-05-08] MEDS ORDERED: flumazeniL 0.5 MG/5 ML INJ IV ONE (15:05)
[2019-05-08] MEDS ORDERED: NALOXONE 0.4 MG/1 ML INJ ONE (15:06)
--- NOTE | 2019-05-08 15:37 | XRay Report ---
SINGLE VIEW RIGHT SHOULDER 05.08.2019 AT 1508 HOURS INDICATION / CLINICAL INFORMATION: right shoulder dislocation, post reduction film. COMPARISON: 05/08/2019 at 1237 hours FINDINGS: Reduction of the right glenohumeral anterior dislocation without demonstrated fracture. Signer Name: Poli Carter MD Signed: 05/08/2019 3:32 PM Workstation Name: [id number]
[2019-05-08 18:32] VITALS: BP 110/58
== END 2019-05-08 18:00 | disposition home or self-care (01) ==
LOC: ED 11:30
DX: M24.411 Recurrent dislocation, right shoulder (principal); Z79.899 Other long term (current) drug therapy
CPT/HCPCS: 23650; 73020; 73030; 94760; J1885; J2250; J2310; J3010; J7030; J7512; 96372; 96374

== ENCOUNTER 2021-02-13 18:51 | Emergency (ER) | payer OTHER, SELFPAY ==
--- NOTE | 2021-02-13 19:45 | XRay Report ---
RIGHT SHOULDER 2 VIEW(S) INDICATION / CLINICAL INFORMATION: pain, possible dislocation COMPARISON: Right shoulder x-ray 05/08/2019 FINDINGS: BONES / JOINT(S): The right humeral head is dislocated anteroinferiorly with respect to the glenoid. Recommend postreduction x-ray No significant arthritis. SOFT TISSUES: No significant abnormality. ADDITIONAL FINDINGS: None. Signer Name: Edmond Greene MD Signed: 02/13/2021 7:41 PM Workstation [id number]
[2021-02-13] MEDS ORDERED: HYDROmorphone 1 MG/1 ML INJ IV ONE (19:48)
--- NOTE | 2021-02-13 20:24 | Emergency Department Report ---
ED Upper Extremity Inj HPI - General Chief Complaint: Extremity Injury, Upper Stated Complaint: DISLOCATED ARM Time Seen by Provider: 02/13/21 19:33 Source: patient Mode of arrival: Ambulatory Limitations: Language Barrier - History of Present Illness Initial Comments: 35-year-old female, history of seizure disorder, multiple shoulder dislocations, presents to ED with right shoulder pain. Patient states she was in the house sweeping when her shoulder became dislocated. History of dislocations in the past. Denies any seizure activity today. MD Complaint: Injury to:: right, shoulder -: This evening Other Injuries: none Place: home Improves With: immobilization Worsens With: movement of extremity Context: other Associated Symptoms: denies other symptoms - Related Data Previous Rx's Medication Instructions Recorded Last Taken Type Acetaminophen [Non-Aspirin Extra 500 mg PO Q6HR PRN #30 tablet 10/16/18 Unknown Rx Strength] Ibuprofen [Motrin] 600 mg PO Q8H PRN #30 tablet 10/16/18 Unknown Rx levETIRAcetam [Keppra TAB] 500 mg PO BID #60 tablet 10/16/18 Unknown Rx HYDROcodone/APAP 5-325 [[place] 1 each PO Q6HR PRN #14 tablet 05/08/19 Unknown Rx 5/325] Ondansetron [Zofran Odt] 4 mg PO Q8HR PRN #14 tab.rapdis 05/08/19 Unknown Rx Naproxen [Naprosyn] 500 mg PO BID #20 tablet 02/13/21 Unknown Rx traMADoL [Ultram] 50 mg PO Q6HR PRN #7 tablet 02/13/21 Unknown Rx Allergies Allergy/AdvReac Type Severity Reaction Status Date / Time No Known Allergies Allergy Verified 02/13/21 19:07 ED Review of Systems ROS: Stated complaint: DISLOCATED ARM Other details as noted in HPI Comment: All other systems reviewed and negative Musculoskeletal: as per HPI Neurological: denies: numbness ED Past Medical Hx - Past Medical History Hx Seizures: Yes (unk medication) - Social History Smoking Status: Never Smoker Substance Use Type: Non Opiate Pain, Prescribed - Medications Home Medications: Home Medications Medication Instructions Recorded Confirmed Last Taken Type Acetaminophen [Non-Aspirin Extra 500 mg PO Q6HR PRN #30 tablet 10/16/18 Unknown Rx Strength] Ibuprofen [Motrin] 600 mg PO Q8H PRN #30 tablet 10/16/18 Unknown Rx levETIRAcetam [Keppra TAB] 500 mg PO BID #60 tablet 10/16/18 Unknown Rx HYDROcodone/APAP 5-325 [[place] 1 each PO Q6HR PRN #14 tablet 05/08/19 Unknown Rx 5/325] Ondansetron [Zofran Odt] 4 mg PO Q8HR PRN #14 tab.rapdis 05/08/19 Unknown Rx Naproxen [Naprosyn] 500 mg PO BID #20 tablet 02/13/21 Unknown Rx traMADoL [Ultram] 50 mg PO Q6HR PRN #7 tablet 02/13/21 Unknown Rx ED Physical Exam - General Limitations: Language Barrier General appearance: alert, in no apparent distress - Head Head exam: Present: atraumatic, normocephalic - Eye Eye exam: Present: normal appearance, EOMI - ENT ENT exam: Present: mucous membranes moist - Neck Neck exam: Present: normal inspection - Respiratory Respiratory exam: Present: normal lung sounds bilaterally. Absent: respiratory distress - Cardiovascular Cardiovascular Exam: Present: regular rate, normal rhythm - GI/Abdominal GI/Abdominal exam: Present: soft. Absent: distended, tenderness - Extremities Exam Extremities exam: Present: other (Deformity noted at the right shoulder) - Neurological Exam Neurological exam: Present: alert, oriented X3 - Psychiatric Psychiatric exam: Present: normal affect, normal mood - Skin Skin exam: Present: warm, dry, intact, normal color ED Course Vital Signs 02/13/21 02/13/21 02/13/21 18:59 20:05 20:16 Temperature 98.4 F Pulse Rate 75 73 64 Respiratory 22 20 19 Rate Blood Pressure 129/84 111/66 Blood Pressure [Right] O2 Sat by Pulse 97 96 100 Oximetry 02/13/21 02/13/21 20:46 21:00 Temperature Pulse Rate 61 75 Respiratory 16 15 Rate Blood Pressure 120/74 Blood Pressure 108/67 [Right] O2 Sat by Pulse 100 100 Oximetry - Reevaluation(s) Reevaluation #1: 02/13/21 20:21 Shoulder reduced using FARES method. No moderate sedation utilized - Orthopedic Joint Reduction Joint #1 Consent Obtained: verbal consent Time Out Performed: Yes Side: right Joint Reduction Location: shoulder Analgesia: none Shoulder Technique Used (if applicable): other (FARES method) Post-Reduction Neuro Exam: intact Post-Reduction Vascular Exam: intact Post Reduction X-Ray Obtained: Yes Post Reduction X-Ray Results: reduced Splint Applied: Yes Patient Tolerated Procedure: well ED Medical Decision Making - Radiology Data Radiology results: report reviewed, image reviewed - Medical Decision Making 35-year-old female presents to ED with recurrent right shoulder dislocation. Patient given Dilaudid 1 mg IV. Fares method is used to reduce the shoulder. Repeat x-ray shows normal alignment. Patient placed in shoulder immobilizer. She will be discharged at this time with instructions to follow-up with Ortho. - Differential Diagnosis Fracture, dislocation Critical care attestation.: If time is entered above; I have spent that time in minutes in the direct care of this critically ill patient, excluding procedure time. ED Disposition Clinical Impression: Dislocation of right shoulder joint Disposition: 01 HOME / SELF CARE / HOMELESS Is pt being admited?: No Condition: Stable Instructions: How to Use a Shoulder Immobilizer, Shoulder Dislocation, [id number] Prescriptions: Naproxen [Naprosyn] 500 mg PO BID #20 tablet traMADoL [Ultram] 50 mg PO Q6HR PRN #7 tablet PRN Reason: Pain Referrals: SALOMÓN LUNSFORD MD [Staff Physician] - 3-5 Days Print Language: WELSH
--- NOTE | 2021-02-13 20:43 | XRay Report ---
RIGHT SHOULDER 2 VIEW(S) 812 PM INDICATION / CLINICAL INFORMATION: shoulder reduction COMPARISON: 7:19 PM same day FINDINGS: BONES / JOINT(S): No acute fracture or subluxation. Previously noted anterior shoulder dislocation avina s been reduced No significant arthritis. SOFT TISSUES: No significant abnormality. ADDITIONAL FINDINGS: None. Signer Name: Edmond Greene MD Signed: 02/13/2021 8:39 PM Workstation Name: [id number]
[2021-02-13 23:26] VITALS: BP 108/67
== END 2021-02-13 21:00 | disposition home or self-care (01) ==
LOC: ED 18:51
DX: S43.084A Other dislocation of right shoulder joint, initial encounter (principal); Z86.69 Personal history of other diseases of the nervous system and sense organs; X58.XXXA Exposure to other specified factors, initial encounter; Y93.89 Activity, other specified; Y92.89 Other specified places as the place of occurrence of the external cause; Y99.8 Other external cause status
CPT/HCPCS: 23650; 73030; 96374; 99283; J1170